=== PATIENT | female | born 1985 | race Caucasian/White ===

== ENCOUNTER 2018-08-21 18:02 | Outpatient (CLI) | payer MEDICAID ==
[2018-08-21 18:29] LABS: ADD MAN DIFF? NO
[2018-08-21 18:33] LABS: BASOPHILS % 0.2 % (0.0-2.0); EOSINOPHILS % 0.4 % (0.0-7.0); HEMATOCRIT 26.4 % (37.0-47.0); HEMOGLOBIN 8.2 g/dl (12.0-16.0); LYMPHOCYTES # 2.2 10^3/ul (0.8-2.9); LYMPHOCYTES % 21.2 % (15.0-51.0); MEAN CORPUSCULAR HEMOGLOBIN 23.5 pg (29.0-33.0); MEAN CORPUSCULAR HGB CONC 31.1 g/dl (32.0-37.0); MEAN CORPUSCULAR VOLUME 75.6 fl (82.0-101.0); MEAN PLATELET VOLUME 10.8 fl (7.4-10.4); MONOCYTE # 0.9 10^3/ul (0.3-0.9); MONOCYTES % 8.3 % (0.0-11.0); NEUTROPHIL # 7.1 10^3/ul (1.6-7.5); NEUTROPHILS % 69.6 % (39.0-77.0); NUCLEATED RED BLOOD CELLS% 0.4 /100WBC (0.0-0.0); PLATELET COUNT 225 10^3/UL (140-415); RED BLOOD COUNT 3.49 10^6/ul (4.20-5.40); RED CELL DISTRIBUTION WIDTH 15.5 % (11.5-14.5)
[2018-08-21 18:33] LABS: WHITE BLOOD COUNT 10.2 10^3/ul (4.8-10.8)
[2018-08-21 18:50] LABS: ADD UMIC YES; UR ASCORBIC ACID NEGATIVE (NEGATIVE); UR BACTERIA FEW /HPF (NONE SEEN); UR BILIRUBIN (Dip) NEGATIVE (NEGATIVE); UR BLOOD (Dip) NEGATIVE (NEGATIVE); UR CLARITY SLIGHTLY CLOUDY (CLEAR); UR COLOR YELLOW (YELLOW); UR GLUCOSE (Dip) NEGATIVE (NEGATIVE); UR KETONES (Dip) NEGATIVE (NEGATIVE); UR LEUKOCYTE ESTERASE (Dip) 3+ Leu/ul (NEGATIVE); UR NITRITE (Dip) NEGATIVE (NEGATIVE); UR RBC 2 /HPF (0-5); UR SPECIFIC GRAVITY (Dip) 1.005 (1.003-1.030); UR TOTAL PROTEIN (Dip) NEGATIVE (NEGATIVE); UR UROBILINOGEN (Dip) NEGATIVE (NEGATIVE); UR WBC 12 /HPF (0-5)
[2018-08-21 18:52] LABS: ALANINE AMINOTRANSFERASE 15 IU/L (13-69); ALBUMIN 3.1 g/dl (3.3-4.9); ALBUMIN/GLOBULIN RATIO 0.83; ALKALINE PHOSPHATASE 121 IU/L (42-121); ANION GAP 12 (8-16); ASPARTATE AMINO TRANSFERASE 20 IU/L (15-46); BILIRUBIN,INDIRECT 0.4 mg/dl (0-1.1); BILIRUBIN,TOTAL 0.4 mg/dl (0.2-1.3); BLOOD UREA NITROGEN 3 mg/dl (7-20); CALCIUM 9.3 mg/dl (8.4-10.2); CARBON DIOXIDE 22 mmol/L (21-31); CHLORIDE 105 mmol/L (97-110); CREATININE 0.47 mg/dl (0.44-1.00); GLUCOSE 124 mg/dl (70-220); POTASSIUM 3.2 mmol/L (3.5-5.1); SODIUM 136 mmol/L (135-144); TOTAL PROTEIN 6.8 g/dl (6.1-8.1)
[2018-08-21] MEDS: POTASSIUM CHLORIDE (SR) 20 MEQ TAB PO (20:42)
== END 2018-08-21 21:25 | disposition home or self-care (01) ==
LOC: OBT 18:02 → L-D 18:03 → OBT 21:25
DX: O24.419 Gestational diabetes mellitus in pregnancy, unspecified control (principal); O99.013 Anemia complicating pregnancy, third trimester; O32.1XX0 Maternal care for breech presentation, not applicable or unspecified; O26.893 Other specified pregnancy related conditions, third trimester; E87.6 Hypokalemia; R10.9 Unspecified abdominal pain; Z3A.31 31 weeks gestation of pregnancy
CPT/HCPCS: 36415; 76815; 76817; 80053; 81001; 85025

== ENCOUNTER 2018-09-28 14:26 | Outpatient (CLI) | payer MEDICAID ==
[2018-09-28] MEDS: LACTATED RINGER'S 1,000 ML IV (14:51)
[2018-09-28] MEDS: SOD FERRIC GLUC COMPLX 125 MG in SOD CHLORIDE 0.9% 100 ML IVPB (15:21)
== END 2018-09-28 16:50 | disposition home or self-care (01) ==
LOC: OBT 14:26 → L-D 14:27 → OBT 16:50
DX: O24.419 Gestational diabetes mellitus in pregnancy, unspecified control (principal); O99.013 Anemia complicating pregnancy, third trimester; D64.89 Other specified anemias; Z3A.36 36 weeks gestation of pregnancy
CPT/HCPCS: 76818; 96360; 96361; 96367

== ENCOUNTER 2018-09-29 17:25 | Outpatient (CLI) | payer MEDICAID ==
[2018-09-29] MEDS: SOD CHLORIDE 0.9% 1,000 ML IV (18:39)
[2018-09-29 19:12] LABS: ADD MAN DIFF? NO
[2018-09-29 19:13] LABS: BASOPHILS % 0.2 % (0.0-2.0); EOSINOPHILS % 0.2 % (0.0-7.0); HEMATOCRIT 24.3 % (37.0-47.0); HEMOGLOBIN 7.4 g/dl (12.0-16.0); MEAN CORPUSCULAR HEMOGLOBIN 22.1 pg (29.0-33.0); MEAN CORPUSCULAR HGB CONC 30.5 g/dl (32.0-37.0); MEAN CORPUSCULAR VOLUME 72.5 fl (82.0-101.0); MEAN PLATELET VOLUME 11.6 fl (7.4-10.4); MONOCYTE # 1.1 10^3/ul (0.3-0.9); MONOCYTES % 11.6 % (0.0-11.0); NEUTROPHIL # 6.2 10^3/ul (1.6-7.5); NEUTROPHILS % 66.5 % (39.0-77.0); NUCLEATED RED BLOOD CELLS # 0.2 10^3/ul (0.0-0.0); NUCLEATED RED BLOOD CELLS% 2.6 /100WBC (0.0-0.0); PLATELET COUNT 202 10^3/UL (140-415); RED BLOOD COUNT 3.35 10^6/ul (4.20-5.40); RED CELL DISTRIBUTION WIDTH 16.6 % (11.5-14.5)
[2018-09-29 19:13] LABS: WHITE BLOOD COUNT 9.4 10^3/ul (4.8-10.8)
[2018-09-29] MEDS: SOD FERRIC GLUC COMPLX 125 MG in SOD CHLORIDE 0.9% 100 ML IVPB (19:47)
== END 2018-09-29 21:05 | disposition home or self-care (01) ==
LOC: OBT 17:25 → L-D 17:28 → OBT 21:05
DX: O99.013 Anemia complicating pregnancy, third trimester (principal); D64.9 Anemia, unspecified; O24.410 Gestational diabetes mellitus in pregnancy, diet controlled; O34.219 Maternal care for unspecified type scar from previous cesarean delivery; Z3A.37 37 weeks gestation of pregnancy
CPT/HCPCS: 36415; 85025; 96360; 96361; 96366

== ENCOUNTER 2018-10-05 19:21 | Outpatient (CLI) | payer MEDICAID ==
[2018-10-05 20:51] LABS: URIC ACID 4.8 mg/dl (3.1-7.9)
[2018-10-05 20:51] LABS: CREATININE 0.48 mg/dl (0.44-1.00)
[2018-10-05 21:02] LABS: COLLECTION PERIOD 24 hrs; CREATININE CLEARANCE 121.1 mls/min (84.0-162.0); SCRET 0.48 mg/dl (0.44-1.00); VOLUME 2700 ml/24hrs
[2018-10-05 21:51] LABS: COLLECTION PERIOD 24 hrs; VOLUME 2700 mls
[2018-10-05 22:19] LABS: ALANINE AMINOTRANSFERASE 12 IU/L (13-69); ALBUMIN 3.2 g/dl (3.3-4.9); ALBUMIN/GLOBULIN RATIO 1.06; ALKALINE PHOSPHATASE 144 IU/L (42-121); ANION GAP 10 (5-13); ASPARTATE AMINO TRANSFERASE 25 IU/L (15-46); BILIRUBIN,INDIRECT 0.2 mg/dl (0-1.1); BILIRUBIN,TOTAL 0.2 mg/dl (0.2-1.3); BLOOD UREA NITROGEN 9 mg/dl (7-20); CALCIUM 8.9 mg/dl (8.4-10.2); CARBON DIOXIDE 20 mmol/L (21-31); CHLORIDE 107 mmol/L (97-110); CREATININE 0.49 mg/dl (0.44-1.00); Estimated GFR > 60 mL/min (>60); GLUCOSE 102 mg/dl (70-220); POTASSIUM 3.5 mmol/L (3.5-5.1); SODIUM 137 mmol/L (135-144); TOTAL PROTEIN 6.2 g/dl (6.1-8.1)
== END 2018-10-06 00:10 | disposition home or self-care (01) ==
LOC: OBT 19:21 → L-D 19:22 → OBT 10-06 00:10
DX: O24.410 Gestational diabetes mellitus in pregnancy, diet controlled (principal); Z3A.38 38 weeks gestation of pregnancy
CPT/HCPCS: 76818; 80053; 82565; 82575; 84156; 84560

== ENCOUNTER 2018-10-08 21:00 | Outpatient (CLI) | payer MEDICAID | END 2018-10-08 23:20 | disposition home or self-care (01) | LOC: OBT 21:00 → L-D 21:03 → OBT 23:20 | DX: O12.13 Gestational proteinuria, third trimester (principal); O34.219 Maternal care for unspecified type scar from previous cesarean delivery; Z3A.38 38 weeks gestation of pregnancy | CPT/HCPCS: 76818 ==

== ENCOUNTER 2018-10-10 17:25 | Inpatient (IN) | payer MEDICAID ==
[2018-10-10] MEDS ORDERED: LIDOCAINE 1% (MPF) 30 ML INJ INJ (17:30)
[2018-10-10] MEDS ORDERED: METHYLERGONOVINE 0.2 MG INJ IM (17:30)
[2018-10-10] MEDS ORDERED: IBUPROFEN 600 MG TAB PO (17:30)
[2018-10-10] MEDS ORDERED: MISOPROSTOL 200 MCG TAB PR (17:30)
[2018-10-10] MEDS ORDERED: CARBOPROST 250 MCG INJ IM (17:30)
[2018-10-10] MEDS ORDERED: BUTORPHANOL 2 MG INJ IV (17:30)
[2018-10-10] MEDS ORDERED: OXYTOCIN 30 UNITS/LR 500 ML IV ×3 (17:30)
[2018-10-10] MEDS: LACTATED RINGER'S 1,000 ML IV (17:54)
[2018-10-10 18:14] LABS: ADD MAN DIFF? NO
[2018-10-10 18:15] LABS: WHITE BLOOD COUNT 6.9 10^3/ul (4.8-10.8)
[2018-10-10 18:15] LABS: ABNORMAL IP MESSAGE 1; BASOPHILS % 0.3 % (0.0-2.0); EOSINOPHILS % 0.1 % (0.0-7.0); HEMATOCRIT 29.3 % (37.0-47.0); HEMOGLOBIN 8.6 g/dl (12.0-16.0); LYMPHOCYTES % 28.8 % (15.0-51.0); MEAN CORPUSCULAR HEMOGLOBIN 22.8 pg (29.0-33.0); MEAN CORPUSCULAR HGB CONC 29.4 g/dl (32.0-37.0); MEAN CORPUSCULAR VOLUME 77.5 fl (82.0-101.0); MEAN PLATELET VOLUME 12.3 fl (7.4-10.4); MONOCYTE # 0.6 10^3/ul (0.3-0.9); MONOCYTES % 8.7 % (0.0-11.0); NEUTROPHIL # 4.2 10^3/ul (1.6-7.5); NEUTROPHILS % 61.8 % (39.0-77.0); NUCLEATED RED BLOOD CELLS # 0.1 10^3/ul (0.0-0.0); NUCLEATED RED BLOOD CELLS% 1.2 /100WBC (0.0-0.0); PLATELET COUNT 175 10^3/UL (140-415); RED BLOOD COUNT 3.78 10^6/ul (4.20-5.40); RED CELL DISTRIBUTION WIDTH 22.1 % (11.5-14.5)
[2018-10-10 18:20] LABS: POSITIVE DIFF @See below
[2018-10-10 18:36] LABS: GLUCOSE 109 mg/dl (70-220)
[2018-10-10 18:47] LABS: INR 0.86; PROTIME 11.8 Sec (11.9-14.9); PT RATIO 0.9
[2018-10-10 18:48] LABS: PARTIAL THROMBOPLASTIN TIME 25.8 Sec (23.0-35.0)
[2018-10-10] MEDS ORDERED: MISOPROSTOL 50 MCG CAPSULE PO (21:00)
[2018-10-10 22:11] LABS: HEPATITIS B SURFACE ANTIGEN NEGATIVE (NEGATIVE)
[2018-10-10] MEDS: MISOPROSTOL 25 MCG CAPSULE PO (22:24)
[2018-10-11] MEDS: LACTATED RINGER'S 1,000 ML IV ×3 (00:24→16:15)
[2018-10-11] MEDS: MISOPROSTOL 25 MCG CAPSULE PO ×5 (03:55→17:00)
[2018-10-11 16:57] LABS: RAPID PLASMA REAGIN NONREACTIVE (NR)
[2018-10-11] MEDS: OXYTOCIN 30 UNITS/LR 500 ML IV (18:19)
[2018-10-12] MEDS: LACTATED RINGER'S 1,000 ML IV ×4 (00:02→10:19)
[2018-10-12] MEDS ORDERED: TRIMETHOBENZAMIDE 100 MG/ML VIAL IM (03:00)
[2018-10-12] MEDS ORDERED: NALOXONE (0.4 MG/ML) INJ IV ×2 (03:00→12:00)
[2018-10-12] MEDS ORDERED: DIPHENHYDRAMINE 50 MG INJ IV ×3 (03:00→12:00)
[2018-10-12] MEDS ORDERED: ONDANSETRON 4 MG INJ IV (03:00)
[2018-10-12] MEDS ORDERED: FENTAnyl 2MCG/ML-ROPIV 0.2% 100 ML (03:14)
[2018-10-12] MEDS ORDERED: LIDOCAINE 2% (SDV) 5 ML INJ (07:00)
[2018-10-12] MEDS: FENTAnyl 2MCG/ML-ROPIV 0.2% 100 ML BAG EPI (08:31)
[2018-10-12] MEDS ORDERED: morphine SULFATE/PF (10 MG/10 ML) INJ (09:45)
[2018-10-12] MEDS ORDERED: METOCLOPRAMIDE 10 MG INJ (09:45)
[2018-10-12] MEDS ORDERED: KETOROLAC 30 MG INJ (09:46)
[2018-10-12] MEDS ORDERED: CITRIC ACID/NA CITRATE 30 ML CUP (09:51)
[2018-10-12] MEDS ORDERED: CEFAZOLIN 2 GM/50 ML (PMX) 50 ML IVPB ×2 (09:51→10:00)
[2018-10-12] MEDS: CITRIC ACID/NA CITRATE 30 ML CUP PO (10:24)
[2018-10-12] MEDS ORDERED: METHYLERGONOVINE 0.2 MG INJ IM (10:30)
[2018-10-12] MEDS ORDERED: KETOROLAC 30 MG INJ IV ×2 (10:30→12:00)
[2018-10-12] MEDS ORDERED: NACL 0.9% 3 ML SYG IV (10:30)
[2018-10-12] MEDS ORDERED: MISOPROSTOL 200 MCG TAB PR (10:30)
[2018-10-12] MEDS ORDERED: OXYTOCIN 30 UNITS/LR 500 ML IV (10:30)
[2018-10-12] MEDS ORDERED: CARBOPROST 250 MCG INJ IM (10:30)
[2018-10-12] MEDS ORDERED: HYDROCODONE/APAP (5/325) TAB PO ×2 (10:30)
[2018-10-12] MEDS ORDERED: EPHEDrine 25 MG/5 ML SYG (10:53)
[2018-10-12] MEDS ORDERED: FENTAnyl 50 MCG/ML VIAL (11:11)
[2018-10-12] MEDS ORDERED: morphine (1 MG/ML) 10ML SYRINGE IV ×3 (12:00)
[2018-10-12] MEDS ORDERED: morphine 2 MG INJ IV ×2 (12:00)
[2018-10-12] MEDS: ONDANSETRON 4 MG INJ IV (14:24)
[2018-10-12] MEDS: OXYTOCIN 30 UNITS/LR 500 ML IV (14:28)
[2018-10-12] MEDS: KETOROLAC 30 MG INJ IV ×3 (14:45→23:42)
[2018-10-12] MEDS: CEFAZOLIN 1 GM/50 ML (PMX) 50 ML IVPB ×2 (14:45→17:12)
[2018-10-12] MEDS: SOD FERRIC GLUC COMPLX 125 MG in SOD CHLORIDE 0.9% 100 ML IVPB (17:11)
[2018-10-13] MEDS: CEFAZOLIN 1 GM/50 ML (PMX) 50 ML IVPB (02:17)
[2018-10-13] MEDS: IBUPROFEN 800 MG TAB PO (05:31)
[2018-10-13] MEDS: KETOROLAC 30 MG INJ IV ×3 (06:31→18:00)
[2018-10-13 08:14] LABS: ADD MAN DIFF? NO
[2018-10-13 08:34] LABS: ABNORMAL IP MESSAGE 1; BASOPHILS % 0.2 % (0.0-2.0); LYMPHOCYTES # 1.6 10^3/ul (0.8-2.9); LYMPHOCYTES % 13.1 % (15.0-51.0); MEAN CORPUSCULAR HEMOGLOBIN 23.2 pg (29.0-33.0); MEAN CORPUSCULAR VOLUME 77.2 fl (82.0-101.0); MEAN PLATELET VOLUME 12.5 fl (7.4-10.4); MONOCYTE # 0.9 10^3/ul (0.3-0.9); MONOCYTES % 7.2 % (0.0-11.0); NEUTROPHIL # 9.7 10^3/ul (1.6-7.5); NUCLEATED RED BLOOD CELLS # 0.1 10^3/ul (0.0-0.0); NUCLEATED RED BLOOD CELLS% 0.7 /100WBC (0.0-0.0); PLATELET COUNT 134 10^3/UL (140-415); RED BLOOD COUNT 2.98 10^6/ul (4.20-5.40); RED CELL DISTRIBUTION WIDTH 21.9 % (11.5-14.5)
[2018-10-13 08:34] LABS: WHITE BLOOD COUNT 12.3 10^3/ul (4.8-10.8)
[2018-10-13 08:48] LABS: POSITIVE DIFF @See below
[2018-10-13 08:49] LABS: HEMOGLOBIN 6.9 g/dl (12.0-16.0)
[2018-10-13] MEDS: LANOLIN HPA 1 PKT TOP (09:37)
[2018-10-13] MEDS: ONDANSETRON 4 MG INJ IV (09:38)
[2018-10-13 09:51] LABS: ANISOCYTOSIS 3+ (0-0); BAND NEUTROPHILS #M 0.3 10^3/ul (0.0-0.6); BAND NEUTROPHILS % (M) 3 % (0-4); BURR CELLS 1+ (0-0); HYPOCHROMASIA 1+ (0-0); LYMPHOCYTES #M 0.6 10^3/ul (0.8-2.9); LYMPHOCYTES % (M) 5 % (15-51); MICROCYTOSIS 3+ (0-0); MONOCYTE #M 0.4 10^3/ul (0.3-0.9); MONOCYTES % (M) 4 % (0-11); OVALOCYTES 1+ (0-0); PLATELET ESTIMATE NORMAL; POLYCHROMASIA 3+ (0-0); SEG NEUT #M 10.9 10^3/ul (1.6-7.5); SEGMENTED NEUTROPHILS (M) % 88 % (39-77); SMUDGE%M 3 % (0-0)
[2018-10-13] MEDS: morphine 2 MG INJ IV (09:51)
[2018-10-13 13:20] LABS: IMMEDIATE SPIN CROSSMATCH 1 2
[2018-10-13] MEDS: OXYCODONE/ACETAMINOPHEN (5/325) TAB PO ×2 (14:25→18:27)
[2018-10-13] MEDS ORDERED: SOD FERRIC GLUC COMPLX 125 MG in SOD CHLORIDE 0.9% 100 ML IVPB (17:00)
[2018-10-13] MEDS: SOD FERRIC GLUC COMPLX 125 MG in SOD CHLORIDE 0.9% 100 ML IVPB (20:18)
[2018-10-14] MEDS: OXYCODONE/ACETAMINOPHEN (5/325) TAB PO ×3 (02:10→21:36)
[2018-10-14] MEDS: IBUPROFEN 800 MG TAB PO ×3 (05:42→22:46)
[2018-10-14] MEDS ORDERED: BISACODYL (EC) 5 MG TAB PO (08:04)
[2018-10-14] MEDS: BISACODYL (EC) 5 MG TAB PO ×2 (08:07→23:37)
[2018-10-14 09:03] LABS: ADD MAN DIFF? NO
[2018-10-14 09:08] LABS: ABNORMAL IP MESSAGE 1; BASOPHIL # 0.1 10^3/ul (0.0-0.1); BASOPHILS % 0.3 % (0.0-2.0); EOSINOPHILS % 0.2 % (0.0-7.0); HEMATOCRIT 30.8 % (37.0-47.0); HEMOGLOBIN 9.4 g/dl (12.0-16.0); LYMPHOCYTES # 1.9 10^3/ul (0.8-2.9); LYMPHOCYTES % 11.8 % (15.0-51.0); MEAN CORPUSCULAR HEMOGLOBIN 24.4 pg (29.0-33.0); MEAN CORPUSCULAR HGB CONC 30.5 g/dl (32.0-37.0); MEAN CORPUSCULAR VOLUME 79.8 fl (82.0-101.0); MONOCYTE # 1.2 10^3/ul (0.3-0.9); MONOCYTES % 7.4 % (0.0-11.0); NEUTROPHIL # 12.7 10^3/ul (1.6-7.5); NEUTROPHILS % 79.6 % (39.0-77.0); NUCLEATED RED BLOOD CELLS # 0.2 10^3/ul (0.0-0.0); NUCLEATED RED BLOOD CELLS% 1.1 /100WBC (0.0-0.0); PLATELET COUNT 130 10^3/UL (140-415); RED BLOOD COUNT 3.86 10^6/ul (4.20-5.40); RED CELL DISTRIBUTION WIDTH 21.2 % (11.5-14.5)
[2018-10-14 09:21] LABS: POSITIVE DIFF @See below
[2018-10-14] MEDS: SOD FERRIC GLUC COMPLX 125 MG in SOD CHLORIDE 0.9% 100 ML IVPB (17:16)
[2018-10-15] MEDS: OXYCODONE/ACETAMINOPHEN (5/325) TAB PO ×2 (03:18→08:51)
[2018-10-15] MEDS: IBUPROFEN 800 MG TAB PO (05:41)
[2018-10-15 07:09] LABS: ADD MAN DIFF? NO
[2018-10-15 07:12] LABS: ABNORMAL IP MESSAGE 1; BASOPHILS % 0.3 % (0.0-2.0); EOSINOPHILS # 0.1 10^3/ul (0.0-0.5); HEMATOCRIT 32.1 % (37.0-47.0); HEMOGLOBIN 9.8 g/dl (12.0-16.0); LYMPHOCYTES # 2.3 10^3/ul (0.8-2.9); LYMPHOCYTES % 18.1 % (15.0-51.0); MEAN CORPUSCULAR HEMOGLOBIN 24.7 pg (29.0-33.0); MEAN CORPUSCULAR HGB CONC 30.5 g/dl (32.0-37.0); MEAN CORPUSCULAR VOLUME 81.1 fl (82.0-101.0); MEAN PLATELET VOLUME 11.8 fl (7.4-10.4); MONOCYTES % 7.9 % (0.0-11.0); NEUTROPHILS % 71.8 % (39.0-77.0); NUCLEATED RED BLOOD CELLS # 0.1 10^3/ul (0.0-0.0); NUCLEATED RED BLOOD CELLS% 0.8 /100WBC (0.0-0.0); PLATELET COUNT 138 10^3/UL (140-415); RED BLOOD COUNT 3.96 10^6/ul (4.20-5.40)
[2018-10-15 07:12] LABS: WHITE BLOOD COUNT 12.5 10^3/ul (4.8-10.8)
[2018-10-15 07:15] LABS: POSITIVE DIFF @See below
[2018-10-15 07:36] LABS: ALANINE AMINOTRANSFERASE 13 IU/L (13-69); ALBUMIN 2.8 g/dl (3.3-4.9); ALKALINE PHOSPHATASE 130 IU/L (42-121); ASPARTATE AMINO TRANSFERASE 26 IU/L (15-46); BILIRUBIN,INDIRECT 0.4 mg/dl (0-1.1); BILIRUBIN,TOTAL 0.4 mg/dl (0.2-1.3); TOTAL PROTEIN 5.8 g/dl (6.1-8.1)
[2018-10-15 07:39] LABS: INR 0.87; PROTIME 11.9 Sec (11.9-14.9); PT RATIO 0.9
[2018-10-15 07:40] LABS: PARTIAL THROMBOPLASTIN TIME 29.8 Sec (23.0-35.0)
[2018-10-15] MEDS: DIPHTH/TET/ACEL PERTUSS (ADULT) 0.5 ML VIAL IM* (08:04)
[2018-10-15] MEDS: MEASLES,MUMPS,RUBELLA VACCINE INJ SC* (08:04)
[2018-10-15 09:24] LABS: FIBRIN SPLIT PRODUCT >10 and <40 ug/ml (<10)
== END 2018-10-15 12:53 | disposition home or self-care (01) | DRG 788 ==
LOC: L-D 10-12 02:31 → PP1 10-12 14:56
PROVIDERS: Obstetrics & Gynecology
PROC: 10D00Z1 Extraction of Products of Conception, Low, Open Approach (ICD-10-PCS; principal; 2018-10-12 10:45)
DX: O24.420 Gestational diabetes mellitus in childbirth, diet controlled (principal); O34.211 Maternal care for low transverse scar from previous cesarean delivery; O61.0 Failed medical induction of labor; G97.1 Other reaction to spinal and lumbar puncture; Y92.238 Other place in hospital as the place of occurrence of the external cause; O76 Abnormality in fetal heart rate and rhythm complicating labor and delivery; O99.02 Anemia complicating childbirth; D64.9 Anemia, unspecified; Z3A.39 39 weeks gestation of pregnancy; Z37.0 Single live birth; Y84.4 Aspiration of fluid as the cause of abnormal reaction of the patient, or of later complication, without mention of misadventure at the time of the procedure
CPT/HCPCS: 36430; 62319; 80076; 82947; 82962; 85025; 85362; 85384; 85610; 85730; 86592; 86850; 86900; 86901; 86920; 87340; 99464